=== PATIENT | male | born 1960 | race Asian ===

== ENCOUNTER 2017-10-11 02:29 | Inpatient (IN) | payer BC ==
[~2017-10-11] VITALS: Ht 167.6 cm; Wt 84.8 kg
[2017-10-11] MEDS ORDERED: ATEN50TA MT (02:50)
[2017-10-11] MEDS ORDERED: ATOR10TA69 MT (02:50)
[2017-10-11] MEDS ORDERED: ONDANSETRON HCL 4MG/2ML VIAL IV STA (03:02)
[2017-10-11] MEDS ORDERED: HYDRALAZINE 20MG/ML VIAL IV ONE (03:15)
[2017-10-11 03:26] LABS: BASOPHILS % 0.9 % (0.0-2.0); EOSINOPHILS % 2.5 % (0.0-5.0); HEMATOCRIT. 43.9 % (42.0-52.0); HEMOGLOBIN. 14.8 g/dL (14.0-18.0); LYMPHOCYTES % 26.4 % (20.0-50.0); MEAN CORPUSCULAR HEMOGLOBIN 31.3 pg (28.0-32.0); MEAN PLATELET VOLUME 7.4 fl (7.4-10.4); MONOCYTES % 9.2 % (2.0-8.0); PLATELET 236 x1000/uL (130-400); RED BLOOD CELL COUNT 4.72 mill/uL (4.7-6.1); RED CELL DISTRIBUTION WIDTH 13.7 % (11.6-14.6)
[2017-10-11 03:29] LABS: CHLORIDE 103 mEq/L (98-107)
[2017-10-11 03:32] LABS: INR 1.1; PARTIAL THROMBOPLASTIN TIME 27.3 sec (23.4-31.0); PROTHROMBIN TIME 11.1 sec (9.4-11.6)
[2017-10-11 03:34] LABS: ETHANOL BLOOD < 10 mg/dL
[2017-10-11 04:44] LABS: CLARITY URINE CLEAR (CLEAR); COLOR URINE YELLOW (YELLOW); KETONES URINE NEGATIVE (NEGATIVE); LEUKOCYTE ESTERASE URINE NEGATIVE (NEGATIVE); NITRITE URINE NEGATIVE (NEGATIVE); OCCULT BLOOD URINE NEGATIVE (NEGATIVE); PH URINE 5.5 (4.5-8.0); PROTEIN URINE NEGATIVE (NEGATIVE); SPECIFIC GRAVITY URINE 1.019 (1.005-1.030); UROBILINOGEN URINE 0.2 E.U./dL (0.2-1.0)
[2017-10-11 04:53] LABS: *AMPHETAMINES SCREEN URINE NEGATIVE (NEGATIVE); *BARBITURATES SCREEN URINE NEGATIVE (NEGATIVE); *BENZODIAZEPINES SCREEN URINE NEGATIVE (NEGATIVE); *COCAINE SCREEN URINE NEGATIVE (NEGATIVE)
[2017-10-11 04:55] LABS: CANNABINOID URINE SCREEN NEGATIVE (NEGATIVE); METHADONE URINE SCREEN NEGATIVE (NEGATIVE); OPIATES URINE SCREEN NEGATIVE (NEGATIVE); PHENCYCLIDINE URINE SCREEN NEGATIVE (NEGATIVE)
[2017-10-11 08:45] VITALS: BP 142/67
[2017-10-11] MEDS ORDERED: ASPI-1159 PO (08:59)
[2017-10-11 09:59] VITALS: BP 142/67
[2017-10-11] MEDS ORDERED: DIPHENHYDRAMINE 50MG/ML VIAL IV PRN (10:45)
[2017-10-11] MEDS ORDERED: AMLODIPINE 5MG TABLET PO SCH ×2 (10:45→21:00)
[2017-10-11] MEDS ORDERED: MAGNESIUM/ALUMINUM HYDROXIDE/SIMETHICONE 30ML UDC PO PRN (10:45)
[2017-10-11] MEDS ORDERED: ONDANSETRON HCL 4MG/2ML VIAL IV PRN (10:45)
[2017-10-11] MEDS ORDERED: HYDRALAZINE 20MG/ML VIAL IV PRN (10:45)
[2017-10-11] MEDS ORDERED: ACETAMINOPHEN 325MG TABLET PO PRN (10:45)
[2017-10-11 12:00] VITALS: BP 110/65
[2017-10-11] MEDS: SODIUM CHLORIDE 0.9% INJ 3ML FLUSH IVF SCH ×2 (15:20→21:04)
[2017-10-11] MEDS: LEVOTHYROXINE SODIUM 25MCG TABLET PO SCH (15:20)
[2017-10-11 16:00] VITALS: BP 117/75
[2017-10-11 20:00] VITALS: BP 132/69
[2017-10-11] MEDS: AMLODIPINE 2.5MG TABLET PO SCH (21:03)
[2017-10-12 00:05] VITALS: BP 140/87
[2017-10-12 04:03] VITALS: BP 110/64
[2017-10-12] MEDS: SODIUM CHLORIDE 0.9% INJ 3ML FLUSH IVF SCH ×2 (05:16→14:00)
[2017-10-12 07:50] VITALS: BP 117/66
[2017-10-12] MEDS ORDERED: REGADENOSON 0.4 MG/5 ML IV ONE ×2 (08:40→13:45)
[2017-10-12] MEDS ORDERED: PNEUMOCOCCAL 23-VAL P-SAC VAC 0.5 ML IM ONE (09:00)
[2017-10-12] MEDS: LEVOTHYROXINE SODIUM 25MCG TABLET PO SCH (10:04)
[2017-10-12] MEDS: AMLODIPINE 2.5MG TABLET PO SCH (10:05)
[2017-10-12 16:00] VITALS: BP 115/73
[2017-10-12 17:21] VITALS: BP 117/61
== END 2017-10-12 18:28 | disposition home or self-care (01) | DRG 74 ==
LOC: ER 03:21 → 7WST 05:03 → EDBEDREQ 05:27 → EDBEDREQTM 05:27 → ENRESERV 07:19
PROVIDERS: ADMIT Internal Medicine; ATTEND Internal Medicine
DX: G90.8 Other disorders of autonomic nervous system (principal); R00.1 Bradycardia, unspecified; E03.9 Hypothyroidism, unspecified; E78.00 Pure hypercholesterolemia, unspecified; E78.5 Hyperlipidemia, unspecified; I10 Essential (primary) hypertension; Z79.899 Other long term (current) drug therapy; Z82.49 Family history of ischemic heart disease and other diseases of the circulatory system; Z87.891 Personal history of nicotine dependence
CPT/HCPCS: 36415; 70450; 71045; 78452; 80053; 80305; 81003; 83880; 84443; 84484; 85025; 85610; 85730; 90732; 93005; 93017; 93306; 96374; 99285; A9500; G0482; J0360; J2405; J2785